=== PATIENT | female | born 1995 | race Caucasian/White ===

== ENCOUNTER 2019-12-11 09:00 | Observation (INO) | payer MEDICAID ==
[~2019-12-11] VITALS: Ht 162.6 cm; Wt 109.8 kg
[2019-12-11 09:33] VITALS: BP 137/83
[2019-12-11] MEDS ORDERED: PREN-217 PO (10:54)
[2019-12-11 10:57] LABS: GLUCOMETER DEV NAME(LOC) 4S.; GLUCOSE,POINT OF CARE 109 MG/DL (70-110)
== END 2019-12-11 10:50 | disposition home or self-care (01) ==
LOC: 4S 09:00
PROVIDERS: ADMIT Obstetrics & Gynecology; ATTEND Obstetrics & Gynecology
DX: O42.913 Preterm premature rupture of membranes, unspecified as to length of time between rupture and onset of labor, third trimester (principal); Z3A.34 34 weeks gestation of pregnancy
CPT/HCPCS: 59025; 76811; 81002; 82962; G0378

== ENCOUNTER 2019-12-15 09:00 | Observation (INO) | payer MEDICAID ==
[~2019-12-15] VITALS: Ht 162.6 cm; Wt 110.2 kg
[~2019-12-15 09:00] MED LIST: PREN-217 PO
[2019-12-15 09:26] VITALS: BP 132/83
[2019-12-15 09:56] LABS: GLUCOMETER DEV NAME(LOC) 4S.; GLUCOSE,POINT OF CARE 97 MG/DL (70-110)
== END 2019-12-15 10:40 | disposition home or self-care (01) ==
LOC: 4S 09:00
PROVIDERS: ADMIT Obstetrics & Gynecology; ATTEND Obstetrics & Gynecology
DX: O24.419 Gestational diabetes mellitus in pregnancy, unspecified control (principal); Z3A.34 34 weeks gestation of pregnancy
CPT/HCPCS: 59025; 81002; 82962; G0378

== ENCOUNTER 2019-12-22 08:45 | Observation (INO) | payer MEDICAID ==
[~2019-12-22] VITALS: Ht 162.6 cm; Wt 111.1 kg
[2019-12-22 09:02] VITALS: BP 138/71
[2019-12-22 09:43] LABS: GLUCOMETER DEV NAME(LOC) 4S.; GLUCOSE,POINT OF CARE 124 MG/DL (70-110)
== END 2019-12-22 10:00 | disposition home or self-care (01) ==
LOC: 4S 08:45
PROVIDERS: ADMIT Obstetrics & Gynecology; ATTEND Obstetrics & Gynecology
DX: O26.893 Other specified pregnancy related conditions, third trimester (principal); Z3A.35 35 weeks gestation of pregnancy
CPT/HCPCS: 59025; 76811; 99219

== ENCOUNTER 2019-12-25 08:58 | Observation (INO) | payer MEDICAID ==
[~2019-12-25] VITALS: Ht 157.5 cm; Wt 111.1 kg
[2019-12-25 09:12] VITALS: BP 126/58
== END 2019-12-25 11:10 | disposition home or self-care (01) ==
LOC: 4S 08:58
PROVIDERS: ADMIT Obstetrics & Gynecology; ATTEND Obstetrics & Gynecology
DX: O26.893 Other specified pregnancy related conditions, third trimester (principal); Z3A.36 36 weeks gestation of pregnancy
CPT/HCPCS: 59025; 76816; 99219

== ENCOUNTER 2019-12-28 08:55 | Observation (INO) | payer MEDICAID ==
[~2019-12-28] VITALS: Ht 162.6 cm; Wt 113.9 kg
[2019-12-28 09:15] VITALS: BP 128/61
[2019-12-28] MEDS ORDERED: RINGERS SOLUTION,LACTATED 1,000 ML IV ONE (09:24)
[2019-12-28] MEDS ORDERED: RINGERS SOLUTION,LACTATED 1,000 ML IV SCH (09:25)
[2019-12-28 10:23] LABS: GLUCOMETER DEV NAME(LOC) 4S.; GLUCOSE,POINT OF CARE 128 MG/DL (70-110)
== END 2019-12-28 12:10 | disposition home or self-care (01) ==
LOC: 4S 08:55
PROVIDERS: ADMIT Obstetrics & Gynecology; ATTEND Obstetrics & Gynecology
DX: O24.419 Gestational diabetes mellitus in pregnancy, unspecified control (principal); Z3A.36 36 weeks gestation of pregnancy
CPT/HCPCS: 59025; 76811; 81002; 82962; 96360; 96361; 99219; J7120; 96365

== ENCOUNTER 2019-12-31 08:55 | Observation (INO) | payer MEDICAID ==
[~2019-12-31] VITALS: Ht 160 cm; Wt 112.5 kg
[2019-12-31 09:23] VITALS: BP 134/82
[2019-12-31 09:52] LABS: GLUCOMETER DEV NAME(LOC) 4S.; GLUCOSE,POINT OF CARE 153 MG/DL (70-110)
== END 2019-12-31 10:20 | disposition home or self-care (01) ==
LOC: 4S 08:55
PROVIDERS: ADMIT Obstetrics & Gynecology; ATTEND Obstetrics & Gynecology
DX: O42.92 Full-term premature rupture of membranes, unspecified as to length of time between rupture and onset of labor (principal); O24.419 Gestational diabetes mellitus in pregnancy, unspecified control; Z3A.37 37 weeks gestation of pregnancy
CPT/HCPCS: 59025; 76815; 99219

== ENCOUNTER 2020-01-04 09:00 | Observation (INO) | payer MEDICAID ==
[~2020-01-04] VITALS: Ht 162.6 cm; Wt 112.9 kg
[2020-01-04 09:17] VITALS: BP 134/83
[2020-01-04 10:20] LABS: GLUCOMETER DEV NAME(LOC) 4S.; GLUCOSE,POINT OF CARE 102 MG/DL (70-110)
[2020-01-04] MEDS ORDERED: ONDANSETRON HCL 4 MG/2 ML VIAL IVP PRN (11:15)
[2020-01-04] MEDS: RINGERS SOLUTION,LACTATED 1,000 ML IV SCH ×2 (12:12→15:26)
== END 2020-01-04 19:00 | disposition home or self-care (01) ==
LOC: 4S 09:00 → INTOOBSV 12:00 → OBSVTOIN 12:00 → UNDODISIN 19:05
PROVIDERS: ADMIT Obstetrics & Gynecology; ATTEND Obstetrics & Gynecology
DX: O24.419 Gestational diabetes mellitus in pregnancy, unspecified control (principal); Z20.828 Contact with and (suspected) exposure to other viral communicable diseases; Z3A.37 37 weeks gestation of pregnancy
CPT/HCPCS: 59025; 76805; 82962; 87426; 87635; 96360; 96361; 99219; J7120; 96365; 96366

== ENCOUNTER 2020-01-08 09:00 | Observation (INO) | payer MEDICAID ==
[~2020-01-08] VITALS: Ht 162.6 cm; Wt 112.9 kg
[2020-01-08 09:15] VITALS: BP 136/71
[2020-01-08 11:00] LABS: GLUCOMETER DEV NAME(LOC) 4S.; GLUCOSE,POINT OF CARE 142 MG/DL (70-110)
== END 2020-01-08 12:20 | disposition home or self-care (01) ==
LOC: 4S 09:00
PROVIDERS: ADMIT Obstetrics & Gynecology; ATTEND Obstetrics & Gynecology
DX: O24.419 Gestational diabetes mellitus in pregnancy, unspecified control (principal); Z3A.38 38 weeks gestation of pregnancy
CPT/HCPCS: 59025; 76816; 99219

== ENCOUNTER 2020-01-08 20:19 | Observation (INO) | payer MEDICAID ==
[2020-01-11 09:28] VITALS: BP 145/85
[2020-01-11 10:00] LABS: GLUCOMETER DEV NAME(LOC) 4S.; GLUCOSE,POINT OF CARE 141 MG/DL (70-110)
== END 2020-01-11 13:10 | disposition home or self-care (01) ==
LOC: 4S 01-11 09:00
PROVIDERS: ADMIT Obstetrics & Gynecology; ATTEND Obstetrics & Gynecology
DX: O26.893 Other specified pregnancy related conditions, third trimester (principal); Z3A.38 38 weeks gestation of pregnancy
CPT/HCPCS: 59025; 76811; 99219

== ENCOUNTER 2020-01-14 14:05 | Observation (INO) | payer MEDICAID ==
[2020-01-14 14:34] VITALS: BP 138/73
== END 2020-01-14 15:35 | disposition home or self-care (01) ==
LOC: 4S 14:05
PROVIDERS: ADMIT Obstetrics & Gynecology; ATTEND Obstetrics & Gynecology
DX: O24.419 Gestational diabetes mellitus in pregnancy, unspecified control (principal); Z3A.39 39 weeks gestation of pregnancy
CPT/HCPCS: 59025; 76805; 99219

== ENCOUNTER 2020-01-16 19:10 | Inpatient (IN) | payer MEDICAID ==
[~2020-01-16] VITALS: Ht 162.6 cm; Wt 113.4 kg
[2020-01-16] MEDS ORDERED: RINGERS SOLUTION,LACTATED 1,000 ML IV ONE (19:27)
[2020-01-16] MEDS ORDERED: OXYTOCIN 30 UNITS/LACT RINGERS 500 ML IV ONE (19:27)
[2020-01-16] MEDS ORDERED: METOCLOPRAMIDE HCL 5 MG/ML 2 ML VIAL IVP PRN (19:30)
[2020-01-16] MEDS ORDERED: LIDOCAINE/PF 1% 30 ML VIAL INJ PRN (19:30)
[2020-01-16] MEDS ORDERED: MINERAL OIL 30 ML UDCUP VG ONE (19:30)
[2020-01-16] MEDS ORDERED: CITRIC ACID/SODIUM CITRATE 30 ML SOLUTION UDCUP PO PRN (19:30)
[2020-01-16 19:58] LABS: BASOPHILS % (AUTO) 0.9 % (0.0-2.0); EOSINOPHILS % (AUTO) 1.5 % (1.0-6.0); HEMATOCRIT 38.1 % (36-46); HEMOGLOBIN 13.2 g/dL (12.0-16.0); LYMPHOCYTES # (AUTO) 2.4 K/uL (1.0-4.8); LYMPHOCYTES % (AUTO) 22.6 % (22.0-44.0); MEAN CORPUSCULAR HGB CONC 34.7 G/dL (31.0-37.0); MEAN CORPUSCULAR VOLUME 84 fL (80-100); MONOCYTES # (AUTO) 0.9 K/uL (0.1-1.0); MONOCYTES % (AUTO) 8.3 % (2.0-9.0); NEUTROPHILS # (AUTO) 7.1 K/uL (1.8-7.7); NEUTROPHILS % (AUTO) 66.7 % (40.0-70.0); PLATELET COUNT (AUTO)-OB 275 K/uL (150-450); RED BLOOD CELL COUNT(AUTO) 4.56 MIL/uL (4.00-5.20)
[2020-01-16] MEDS ORDERED: DINOPROSTONE 10 MG VAGINAL SUPPOSITORY VG ONE (20:30)
[2020-01-16 20:33] VITALS: BP 139/82
[2020-01-16] MEDS: RINGERS SOLUTION,LACTATED 1,000 ML IV SCH (21:20)
[2020-01-16 21:26] LABS: GLUCOMETER DEV NAME(LOC) 4S.; GLUCOSE,POINT OF CARE 135 MG/DL (70-110)
[2020-01-17] MEDS: RINGERS SOLUTION,LACTATED 1,000 ML IV SCH ×3 (02:06→18:45)
[2020-01-17 07:07] LABS: GLUCOMETER DEV NAME(LOC) 4S.; GLUCOSE,POINT OF CARE 111 MG/DL (70-110)
[2020-01-17] MEDS ORDERED: -PHARMACY NOTE- MISC ONE (08:30)
[2020-01-17] MEDS: MISOPROSTOL 50 MCG TABLET PO SCH ×3 (11:04→19:20)
[2020-01-17 11:34] LABS: GLUCOMETER DEV NAME(LOC) 4S.; GLUCOSE,POINT OF CARE 102 MG/DL (70-110)
[2020-01-17 16:02] LABS: GLUCOMETER DEV NAME(LOC) 4S.; GLUCOSE,POINT OF CARE 88 MG/DL (70-110)
[2020-01-17 19:52] LABS: GLUCOMETER DEV NAME(LOC) 4S.; GLUCOSE,POINT OF CARE 92 MG/DL (70-110)
[2020-01-17] MEDS ORDERED: MISOPROSTOL 50 MCG TABLET PO ONE (23:20)
[2020-01-18] MEDS: MISOPROSTOL 50 MCG TABLET PO SCH (03:13)
[2020-01-18 06:13] LABS: GLUCOMETER DEV NAME(LOC) 4S.; GLUCOSE,POINT OF CARE 91 MG/DL (70-110)
[2020-01-18] MEDS ORDERED: SODIUM CHLORIDE 0.9% 1,000 ML ONE (09:28)
[2020-01-18] MEDS ORDERED: BUPIVACAINE HCL/DEX-WATER/PF 0.75% 2 ML AMP ONE (09:28)
[2020-01-18] MEDS ORDERED: RINGERS SOLUTION,LACTATED 1,000 ML IV ONE (09:28)
[2020-01-18] MEDS: RINGERS SOLUTION,LACTATED 1,000 ML IV SCH ×3 (09:29→23:47)
[2020-01-18] MEDS ORDERED: HYDROmorphone 2 MG/ML SYRINGE IVP PRN (11:15)
[2020-01-18] MEDS ORDERED: MEPERIDINE-PF 25 MG/ML VIAL IVP PRN (11:15)
[2020-01-18] MEDS ORDERED: FentaNYL CITRATE-PF 100 MCG/2 ML VIAL IVP PRN ×2 (11:15→14:00)
[2020-01-18] MEDS ORDERED: OXYTOCIN 30 UNITS/LACT RINGERS 500 ML IV ONE (11:31)
[2020-01-18] MEDS ORDERED: OxyCODONE HCL/ACETAMINOPHEN 5-325 MG TABLET PO PRN (11:45)
[2020-01-18] MEDS ORDERED: LANOLIN 7 GM OINTMENT TP PRN (11:45)
[2020-01-18 13:54] LABS: BASOPHILS % (AUTO) 0.3 % (0.0-2.0); EOSINOPHILS % (AUTO) 0.1 % (1.0-6.0); HEMATOCRIT 36.6 % (36-46); HEMOGLOBIN 12.2 g/dL (12.0-16.0); LYMPHOCYTES # (AUTO) 1.5 K/uL (1.0-4.8); LYMPHOCYTES % (AUTO) 11.1 % (22.0-44.0); MEAN CORPUSCULAR HEMOGLOBIN 28.2 pg (26.0-34.0); MEAN CORPUSCULAR HGB CONC 33.4 G/dL (31.0-37.0); MEAN CORPUSCULAR VOLUME 84 fL (80-100); MONOCYTES # (AUTO) 0.7 K/uL (0.1-1.0); MONOCYTES % (AUTO) 5.5 % (2.0-9.0); NEUTROPHILS # (AUTO) 11.3 K/uL (1.8-7.7); PLATELET COUNT (AUTO)-OB 256 K/uL (150-450); RED BLOOD CELL COUNT(AUTO) 4.34 MIL/uL (4.00-5.20); RED CELL DISTRIBUTION WIDTH 14.9 % (11.5-14.5)
[2020-01-18] MEDS ORDERED: NALBUPHINE HCL 10 MG/ML VIAL IVP PRN ×2 (14:00)
[2020-01-18] MEDS ORDERED: NALOXONE HCL 0.4 MG/ML VIAL IVP PRN (14:00)
[2020-01-18] MEDS ORDERED: DiphenhydrAMINE HCL 50 MG/ML VIAL IVP PRN (14:00)
[2020-01-18] MEDS ORDERED: ONDANSETRON HCL 4 MG/2 ML VIAL IVP PRN (14:00)
[2020-01-18] MEDS ORDERED: MORPHINE SULFATE 10 MG/ML SYRINGE IVP PRN (14:00)
[2020-01-18 14:05] LABS: ANION GAP 8 mmol/L (8-16); CALCIUM, TOTAL 8.3 mg/dL (8.8-10.5); CARBON DIOXIDE 22 mmol/L (22-29); CHLORIDE 107 mmol/L (98-107); CREATININE 0.54 mg/dL (0.60-1.30); GLOMERULAR FILTR. RATE CALC > 60 mL/min (>60); GLUCOSE,RANDOM 79 mg/dL (70-110); POTASSIUM 3.5 mmol/L (3.5-5.1); SODIUM SERUM 137 mmol/L (136-145); UREA NITROGEN, BLOOD 6 mg/dL (7-18)
[2020-01-18 14:10] LABS: ALANINE AMINOTRANSFERASE 25 U/L (12-78); ALBUMIN 2.1 g/dL (3.4-5.0); ALKALINE PHOSPHATASE 118 U/L (46-116); ASPARTATE AMINOTRANSFERASE 18 U/L (15-37); BILIRUBIN,TOTAL 0.2 mg/dL (0.1-1.0); TOTAL PROTEIN, SERUM 5.5 g/dL (6.4-8.2)
[2020-01-18] MEDS: ACETAMINOPHEN 1000 MG/ISO-OSM 100 ML IV SCH ×2 (14:33→22:11)
[2020-01-18 15:13] LABS: URIC ACID 3.4 mg/dL (2.6-7.2)
[2020-01-18 15:31] LABS: CREATININE,URINE RANDOM 178.8 mg/dL (30.0-125.0)
[2020-01-18] MEDS ORDERED: METOCLOPRAMIDE HCL 5 MG/ML 2 ML VIAL IVP ONE (18:15)
[2020-01-18] MEDS ORDERED: OXYGEN THERAPY IH SCH ×3 (20:00)
[2020-01-18] MEDS: MAGNESIUM HYDROXIDE SUSPENSION 30 ML UDCUP PO SCH (21:28)
[2020-01-18] MEDS: KETOROLAC TROMETHAMINE 30 MG/ML VIAL IVP SCH (21:29)
[2020-01-19] MEDS: KETOROLAC TROMETHAMINE 30 MG/ML VIAL IVP SCH (03:40)
[2020-01-19] MEDS ORDERED: 0.9% SODIUM CHLORIDE 10 ML VIAL IVP ONE (06:11)
[2020-01-19] MEDS ORDERED: EPHEDrine SULFATE 50 MG/ML VIAL IM ONE (06:11)
[2020-01-19] MEDS ORDERED: KETOROLAC TROMETHAMINE 60 MG/2 ML VIAL IM ONE (06:11)
[2020-01-19] MEDS ORDERED: MORPHINE SULFATE/PF 0.5 MG/ML 10 ML AMP IVP ONE (06:11)
[2020-01-19] MEDS ORDERED: ONDANSETRON HCL 4 MG/2 ML VIAL IVP ONE (06:11)
[2020-01-19] MEDS ORDERED: OXYTOCIN 10 UNITS/ML VIAL IM ONE (06:11)
[2020-01-19] MEDS ORDERED: FentaNYL CITRATE-PF 100 MCG/2 ML VIAL IVP ONE (06:11)
[2020-01-19 06:29] LABS: BASOPHILS % (AUTO) 0.2 % (0.0-2.0); EOSINOPHILS % (AUTO) 0.4 % (1.0-6.0); HEMATOCRIT 33.5 % (36-46); HEMOGLOBIN 11.6 g/dL (12.0-16.0); LYMPHOCYTES # (AUTO) 1.5 K/uL (1.0-4.8); LYMPHOCYTES % (AUTO) 17.6 % (22.0-44.0); MEAN CORPUSCULAR HEMOGLOBIN 29.2 pg (26.0-34.0); MEAN CORPUSCULAR HGB CONC 34.7 G/dL (31.0-37.0); MEAN CORPUSCULAR VOLUME 84 fL (80-100); MONOCYTES # (AUTO) 0.7 K/uL (0.1-1.0); MONOCYTES % (AUTO) 8.2 % (2.0-9.0); NEUTROPHILS # (AUTO) 6.4 K/uL (1.8-7.7); NEUTROPHILS % (AUTO) 73.6 % (40.0-70.0); PLATELET COUNT (AUTO)-OB 229 K/uL (150-450); RED BLOOD CELL COUNT(AUTO) 3.97 MIL/uL (4.00-5.20); RED CELL DISTRIBUTION WIDTH 14.9 % (11.5-14.5)
[2020-01-19] MEDS: MAGNESIUM HYDROXIDE SUSPENSION 30 ML UDCUP PO SCH ×2 (09:00→10:58)
[2020-01-19] MEDS: IBUPROFEN 800 MG TABLET PO PRN ×2 (10:58→17:53)
[2020-01-19] MEDS: OxyCODONE HCL/ACETAMINOPHEN 5-325 MG TABLET PO PRN (22:06)
[2020-01-20] MEDS: IBUPROFEN 800 MG TABLET PO PRN ×2 (00:45→06:34)
[2020-01-20] MEDS: OxyCODONE HCL/ACETAMINOPHEN 5-325 MG TABLET PO PRN (08:11)
[2020-01-20] MEDS ORDERED: IBUP-2071 PO (09:22)
[2020-01-20] MEDS ORDERED: DOCU-275 PO (09:22)
[2020-01-20] MEDS ORDERED: PERCT PO (09:23)
== END 2020-01-20 10:40 | disposition home or self-care (01) | DRG 540 ==
LOC: 4S 19:10 → OBSVTOIN 19:10 → 4S 01-18 13:22 → PREOBSVTOIN 01-30 19:28
PROVIDERS: ADMIT Obstetrics & Gynecology; ATTEND Obstetrics & Gynecology
PROC: 10D00Z1 Extraction of Products of Conception, Low, Open Approach (ICD-10-PCS; principal; 2020-01-18)
DX: O61.0 Failed medical induction of labor (principal); O69.81X0 Labor and delivery complicated by cord around neck, without compression, not applicable or unspecified; O24.429 Gestational diabetes mellitus in childbirth, unspecified control; Z37.0 Single live birth; Z3A.39 39 weeks gestation of pregnancy; Z03.818 Encounter for observation for suspected exposure to other biological agents ruled out
CPT/HCPCS: 76811; 82570; 84156; 84550; 86850; 86870; 86900; 86901; 87081; 87426; J0131; J0690; J1885; J2274; J2405; J2590; J2765; J3010; J3490; J7030; J7120